=== PATIENT | female | born 1975 | race Caucasian/White ===

== ENCOUNTER 2021-11-25 17:30 | Inpatient (IN) | payer BC ==
[2022-03-10 16:14] VITALS: BMI 47.4
[2022-03-15] MEDS ORDERED: Fentanyl 250 MCG/5 ML VIAL ONE (06:24)
[2022-03-15] MEDS ORDERED: SUGAMMADEX SODIUM 200 MG/2 ML VIAL ONE (06:25)
[2022-03-15] MEDS ORDERED: Ketamine 50 MG/ML (10ML VIAL) ONE (06:25)
[2022-03-15] MEDS ORDERED: fentaNYL Citrate/PF 100 MCG/2 ML SYRINGE ONE ×2 (06:41→06:42)
[2022-03-15] MEDS ORDERED: Bupivacaine 0.25% 10 ML VIAL ONE (06:55)
[2022-03-15] MEDS ORDERED: Lidocaine 1% w/Epinephrine 1:100K 20 ML VIAL ONE (06:55)
[2022-03-15 07:16] LABS: #Basophils 0.1 thou/uL (0.0-0.2); #Eosinphils 0.1 thou/uL (0.0-0.7); #Lymphocytes 2.1 thou/uL (1.20-3.40); #Monocytes 0.5 thou/uL (0.11-0.59); #Neutrophils 4.9 thou/uL (1.40-6.50); %Basophils 1.4 % (0.0-1.0); %Eosinophils 1.2 % (0.0-10.0); %Lymphocytes 26.9 % (21.0-51.0); %Monocytes 6.2 % (0.0-10.0); %Neutrophils 64.3 % (42.0-75.0); Hemoglobin 12.9 g/dL (12.0-16.0); Mean Corpuscular HGB CONC 32.1 g/dL (32.0-36.0); Mean Corpuscular Hemoglobin 29.5 pg (27.0-31.0); Mean Corpuscular Volume 91.8 fL (78.0-98.0); Mean Platelet Volume 8.4 fL (7.4-10.4); Platelet Count 316 thou/uL (130-400); RBC Distribution Width 14.5 % (11.5-14.5); Red Blood Cell (RBC) Count 4.38 mill/uL (4.20-5.40); White Blood Cell (WBC) Count 7.6 thou/uL (4.8-10.8)
[2022-03-15] MEDS ORDERED: Heparin 5,000 UNITS/ML VIAL ONE (07:16)
[2022-03-15 07:24] LABS: Hemoglobin A1c 5.5 % (4.0-6.0)
[2022-03-15] MEDS ORDERED: ceFAZolin (BATCH) 2 GM/100 ML BAG ONE (07:27)
[2022-03-15 07:30] LABS: ALT (SGPT) 15 U/L (8-55); AST (SGOT) 17 U/L (5-34); Albumin 4.2 g/dL (3.5-5.0); Alkaline Phosphatase 75 U/L (40-110); Anion Gap 13 mmol/L (10-20); BUN (Urea Nitrogen) 12 mg/dL (7.0-18.7); Bilirubin, Total 0.3 mg/dL (0.2-1.2); Calc. Creatinine Clearance 193 mL/min (70-130); Calcium 9.3 mg/dL (7.8-10.44); Carbon Dioxide 20 mmol/L (22-29); Chloride 109 mmol/L (98-107); Globulin 2.8 g/dL (2.4-3.5); Glucose 87 mg/dL (70-105); Potassium 4.1 mmol/L (3.5-5.1); Sodium 138 mmol/L (136-145)
[2022-03-15] MEDS ORDERED: Rocuronium Bromide 10 MG/ML (10ML VIAL) ONE (07:40)
[2022-03-15] MEDS ORDERED: Ketorolac Tromethamine 30 MG/ML VIAL ONE (07:40)
[2022-03-15] MEDS ORDERED: Lidocaine 1% PF 5 ML VIAL ONE (07:40)
[2022-03-15] MEDS ORDERED: Albuterol Sulfate HFA (OR ONLY) ONE ×2 (07:40→08:04)
[2022-03-15] MEDS ORDERED: Dexamethasone 20 MG/5 ML VIAL ONE (07:40)
[2022-03-15] MEDS ORDERED: ePHEDrine 50 MG/ML VIAL ONE (07:40)
[2022-03-15] MEDS ORDERED: Ondansetron PF 4 MG/2 ML Vial ONE (07:40)
[2022-03-15] MEDS ORDERED: Glycopyrrolate 0.2 MG/ML 5 ML SYRINGE ONE (07:40)
[2022-03-15] MEDS ORDERED: PROPOFOL 200 MG/20 ML VIAL ONE (07:40)
[2022-03-15] MEDS ORDERED: Ondansetron HCl/PF 4 MG/2 ML Vial IVP PRN (08:21)
[2022-03-15] MEDS ORDERED: diphenhydrAMINE 50 MG/ML VIAL IVP PRN ×2 (08:21→08:52)
[2022-03-15] MEDS ORDERED: Promethazine HCl 25 MG/ML VIAL IM PRN ×3 (08:21→08:52)
[2022-03-15] MEDS ORDERED: Ondansetron PF 4 MG/2 ML Vial IVP PRN ×2 (08:21→08:52)
[2022-03-15] MEDS ORDERED: diphenhydrAMINE 25 MG CAP PO PRN (08:21)
[2022-03-15] MEDS ORDERED: diphenhydrAMINE 50 MG/ML VIAL IM PRN (08:21)
[2022-03-15] MEDS ORDERED: fentaNYL Citrate/PF 2,000 MCG in Sodium Chloride 0.9% 60 ML IV PRN (08:21)
[2022-03-15] MEDS ORDERED: Promethazine HCl 25 MG/ML VIAL IVPB PRN (08:21)
[2022-03-15] MEDS ORDERED: Naloxone HCl 0.4 mg/ml Vial IV PRN (08:21)
[2022-03-15] MEDS ORDERED: Communication Order-Pharmacy FS SCH ×2 (08:30→08:45)
[2022-03-15] MEDS ORDERED: Hydrocodone-Acetamin 15 ML UDCUP PO PRN (08:52)
[2022-03-15] MEDS ORDERED: Dextrose 50% Abboject 50 ML SYRINGE SLOW IVP PRN (08:52)
[2022-03-15] MEDS ORDERED: Dextrose 5% in Water 1,000 ML IV PRN (08:52)
[2022-03-15] MEDS ORDERED: hydrALAZINE 20 MG/ML VIAL SLOW IVP PRN (08:52)
[2022-03-15] MEDS ORDERED: Promethazine HCl 25 MG/ML VIAL ONE (09:18)
[2022-03-15] MEDS: D5 1/2 NS w/20 mEq KCL 1,000 ML IV SCH ×2 (10:48→16:15)
[2022-03-15] MEDS: Pantoprazole 40 MG VIAL IVP SCH (10:49)
[2022-03-15] MEDS ORDERED: Enoxaparin Sodium 40 MG/0.4 ML SYRINGE SC SCH (21:00)
[2022-03-16] MEDS: D5 1/2 NS w/20 mEq KCL 1,000 ML IV SCH ×2 (02:10→07:59)
[2022-03-16] MEDS: Hydrocodone-Acetamin 15 ML UDCUP PO PRN ×2 (07:58→12:44)
[2022-03-16] MEDS: Pantoprazole 40 MG VIAL IVP SCH (07:59)
[2022-03-16 08:07] LABS: #Eosinphils 0.1 thou/uL (0.0-0.7); #Lymphocytes 1.8 thou/uL (1.20-3.40); #Monocytes 0.7 thou/uL (0.11-0.59); #Neutrophils 9.4 thou/uL (1.40-6.50); %Basophils 0.4 % (0.0-1.0); %Eosinophils 0.4 % (0.0-10.0); %Lymphocytes 14.7 % (21.0-51.0); %Monocytes 5.9 % (0.0-10.0); %Neutrophils 78.6 % (42.0-75.0); Hemoglobin 11.1 g/dL (12.0-16.0); Mean Corpuscular HGB CONC 31.5 g/dL (32.0-36.0); Mean Corpuscular Hemoglobin 29.2 pg (27.0-31.0); Mean Corpuscular Volume 92.9 fL (78.0-98.0); Mean Platelet Volume 8.3 fL (7.4-10.4); Platelet Count 266 thou/uL (130-400); RBC Distribution Width 14.5 % (11.5-14.5); Red Blood Cell (RBC) Count 3.78 mill/uL (4.20-5.40); White Blood Cell (WBC) Count 11.9 thou/uL (4.8-10.8)
[2022-03-16] MEDS ORDERED: ALPRAZolam 0.25 MG TAB PO PRN (08:11)
[2022-03-16 08:26] LABS: Anion Gap 9 mmol/L (10-20); BUN (Urea Nitrogen) 8 mg/dL (7.0-18.7); Calc. Creatinine Clearance 213 mL/min (70-130); Calcium 8.7 mg/dL (7.8-10.44); Carbon Dioxide 23 mmol/L (22-29); Chloride 106 mmol/L (98-107); Glucose 92 mg/dL (70-105); Potassium 4.4 mmol/L (3.5-5.1); Sodium 134 mmol/L (136-145)
[2022-03-16 11:30] VITALS: BP 112/69; TEMP 98.7
== END 2022-03-16 12:56 | disposition home or self-care (01) | DRG 621 ==
LOC: SURG A 03-15 06:12
PROVIDERS: ADMIT Surgery; ATTEND Surgery
PROC: 0DB64Z3 Excision of Stomach, Percutaneous Endoscopic Approach, Vertical (ICD-10-PCS; principal; 2022-03-15)
PROC: 8E0W4CZ Robotic Assisted Procedure of Trunk Region, Percutaneous Endoscopic Approach (ICD-10-PCS; 2022-03-15)
DX: E66.01 Morbid (severe) obesity due to excess calories (principal); Z68.42 Body mass index [BMI] 45.0-49.9, adult; R33.9 Retention of urine, unspecified
CPT/HCPCS: 36415; 80048; 80053; 83036; 85025; 88307; 88312; 88342; C9113; J0690; J1100; J1644; J1650; J1885; J2405; J2550; J2704; J3010; J3480; J3490; S0020

== ENCOUNTER 2021-11-25 17:32 | Outpatient (CLI) | payer BC ==
[2021-11-25 18:28] LABS: #Basophils 0.1 10x3/uL (0.0-0.2); #Eosinphils 0.2 10x3/uL (0.0-0.5); #Monocytes 0.6 10x3/uL (0.0-1.1); %Basophils 0.5 % (0.0-2.0); %Eosinophils 1.4 % (0.0-6.0); %Lymphocytes 23.8 % (18.0-47.0); %Monocytes 4.6 % (0.0-10.0); %Neutrophils 69.3 % (40.0-75.0); Hemoglobin 11.5 g/dL (12.0-15.5); Mean Corpuscular HGB CONC 32.4 g/dL (32.0-36.0); Mean Corpuscular Hemoglobin 28.7 pg (27.0-33.0); Mean Corpuscular Volume 88.5 fl (81.6-98.3); Mean Platelet Volume 10.9 fl (7.4-10.4); Platelet Count 374 10x3/uL (150-450); RBC Distribution Width 14.3 % (11.5-14.5); Red Blood Cell (RBC) Count 4.01 10x6/uL (3.90-5.03)
[2021-11-25 18:35] LABS: ALT (SGPT) 13 U/L (8-55); AST (SGOT) 17 U/L (5-34); Albumin 4.5 g/dL (3.5-5.0); Alkaline Phosphatase 71 U/L (40-110); Anion Gap 15 mmol/L (10-20); BUN (Urea Nitrogen) 26 mg/dL (7.0-18.7); Bilirubin, Total 0.2 mg/dL (0.2-1.2); Calc. Creatinine Clearance 0 mL/min (70-130); Calcium 9.8 mg/dL (7.8-10.44); Carbon Dioxide 22 mmol/L (22-29); Chloride 106 mmol/L (98-107); Globulin 2.6 g/dL (2.4-3.5); Glucose 84 mg/dL (70-105); Potassium 3.9 mmol/L (3.5-5.1); Protein, Total 7.1 g/dL (6.0-8.3); Sodium 139 mmol/L (136-145)
[2021-11-26 13:01] LABS: Hemoglobin A1c 5.6 % (4.0-6.0)
[2021-11-26 18:17] LABS: SARS-CoV-2 PCR by NAA DETECTED (NotDetected)
== END 2021-11-25 17:33 | disposition home or self-care (01) ==
LOC: LABBT 17:32
PROVIDERS: ATTEND Surgery
DX: U07.1 COVID-19 (principal); Z01.818 Encounter for other preprocedural examination; E66.01 Morbid (severe) obesity due to excess calories
CPT/HCPCS: 71046; 80053; 83036; 85025; 93005; 93010; U0003; U0005

== ENCOUNTER 2022-03-10 17:31 | Outpatient (CLI) | payer BC ==
[2022-03-11 11:54] LABS: SARS-CoV-2 PCR by NAA Not Detected (NotDetected)
== END 2022-03-10 17:32 | disposition home or self-care (01) ==
LOC: LABBT 17:31
PROVIDERS: ATTEND Surgery
DX: E66.01 Morbid (severe) obesity due to excess calories (principal); Z20.822 Contact with and (suspected) exposure to COVID-19
CPT/HCPCS: U0003; U0005